=== PATIENT | female | born 1955 | race Hispanic/Latino ===

== ENCOUNTER 2017-08-22 07:21 | Day surgery (SDC) | payer BC ==
[2017-08-12 14:06] VITALS: BMI 25.2
[2017-08-22] MEDS ORDERED: Propofol 10 mg/ml Inj (20 ML) ONE (08:56)
[2017-08-22] MEDS ORDERED: Sodium Chloride 0.9% 1,000 ML IV SCH (09:45)
[2017-08-22 10:25] VITALS: BP 132/69; PULSE 65; RESP 18; TEMP 97.4; O2SAT 100
== END 2017-08-22 11:02 | disposition home or self-care (01) ==
LOC: ENDO 07:21
PROVIDERS: ATTEND Specialist
DX: Z12.11 Encounter for screening for malignant neoplasm of colon (principal); K64.8 Other hemorrhoids
CPT/HCPCS: 45378; J2704; J7040 ×2